=== PATIENT | female | born 1980 | race Caucasian/White ===

== ENCOUNTER 2025-05-07 09:06 | Outpatient (CLI) | payer BC, SELFPAY ==
--- NOTE | 2025-05-07 09:20 | MM_ITS ---
WS: [id number] DIAGNOSTIC BILATERAL DIGITAL BREAST TOMOSYNTHESIS MAMMOGRAPHY WITH CAD HISTORY: SCREENING COMPARISON: None available. TECHNIQUE: Bilateral craniocaudad, mediolateral oblique, and mediolateral views are submitted with tomosynthesis and SM. Computer aided detection utilized. Breast composition: The breasts are heterogeneously dense, which may obscure small masses. Ovoid mass measuring 6 x 9 x 11 mm central retroareolar LEFT breast. This mass may be just slightly medial at 11:00. Otherwise no suspicious masses or calcifications. MM/MM [facility] tomosynthesis [id number] IMPRESSION: BI-RADS: 0 - Incomplete: Need additional imaging evaluation FOLLOW UP: Need Additional Imaging LEFT breast: Spot compression views (CC and MLO). True ML. Ultrasound to follow if abnormality persists.
== END 2025-05-07 09:07 | disposition home or self-care (01) ==
LOC: MOBLMAM 09:10
PROVIDERS: PCP Nurse Practitioner Family; Visit Provider Nurse Practitioner Family
DX: Z12.31 Encounter for screening mammogram for malignant neoplasm of breast (principal); R92.333 Mammographic heterogeneous density, bilateral breasts; N63.22 Unspecified lump in the left breast, upper inner quadrant
CPT/HCPCS: 77063; 77067